=== PATIENT | male | born 1985 | race Caucasian/White ===

== ENCOUNTER 2022-07-31 19:57 | Emergency (ER) | payer SELFPAY ==
[2022-07-31 21:01] LABS: CARBON DIOXIDE,CO2 26.4 mmol/L (21.0-32.0); POTASSIUM,K 3.8 mmol/L (3.5-5.1)
[2022-07-31 21:12] LABS: CORONAVIRUS COVID-19 NAA NEGATIVE (NEGATIVE); INFLUENZA A NAA NEGATIVE (NEGATIVE); INFLUENZA B NAA NEGATIVE (NEGATIVE); RESPIRATORY SYNCYTIAL VIR NAA NEGATIVE (NEGATIVE)
[2022-07-31] MEDS ORDERED: Amoxicillin/Clavulanate K 875-125 MG Tab PO ONE (21:20)
== END 2022-07-31 21:58 | disposition home or self-care (01) ==
LOC: MW.ED 19:57
DX: J01.90 Acute sinusitis, unspecified (principal); Z20.822 Contact with and (suspected) exposure to COVID-19
CPT/HCPCS: 0241U; 36415; 71045; 80053; 84484; 85025; 87651; 93005; 99285; A9270; 93010; 99283